=== PATIENT | female | born 1960 | race Caucasian/White ===

== ENCOUNTER → 2017-02-24 | Outpatient (CLI) | payer OTHER ==
[~2017-02-24] VITALS: Ht 160 cm; Wt 99.8 kg
[~2017-02-24] MED LIST: ACTONEL150 MG PO; AMOX TR-K CLV1 EAC4 PO; BENADRYL25 MG PO; COUMADIN1 MG PO; DOK PLUS TABLE1 EACH PO; DOXYCYCLINE HY100 MG PO; ENDOCET 5-3251 EACH PO; FLONASE16 G1 BOTH NARES; IRON325 M1 PO; METRONIDAZOLE500 MG PO; MICROZIDE12.5 M1 PO; MOBIC15 MG PO; NEURONTIN100 MG PO; PROTONIX20 MG PO; REQUIP0.25 MG PO; TUMS500 MG PO; TYLENOL WITH C1 EACH PO; ULTRAM50 MG PO; ZESTORETIC 20-1 EAC1 NG
== END | disposition home or self-care (01) ==
LOC: AMB 02-19 13:00
PROC: 0D758ZZ Dilation of Esophagus, Via Natural or Artificial Opening Endoscopic (ICD-10-PCS; principal; 2017-02-24)
PROC: 0DB98ZX Excision of Duodenum, Via Natural or Artificial Opening Endoscopic, Diagnostic (ICD-10-PCS; principal; 2017-02-24)
PROC: 0DB68ZX Excision of Stomach, Via Natural or Artificial Opening Endoscopic, Diagnostic (ICD-10-PCS; principal; 2017-02-24)
PROC: 0DB58ZX Excision of Esophagus, Via Natural or Artificial Opening Endoscopic, Diagnostic (ICD-10-PCS; principal; 2017-02-24)
DX: K31.7 Polyp of stomach and duodenum (principal); K21.9 Gastro-esophageal reflux disease without esophagitis; K29.70 Gastritis, unspecified, without bleeding; K44.9 Diaphragmatic hernia without obstruction or gangrene; I10 Essential (primary) hypertension; E66.9 Obesity, unspecified; Z68.38 Body mass index [BMI] 38.0-38.9, adult
CPT/HCPCS: 88305; 88342 TC; 93005; J2250; J3010

== ENCOUNTER 2017-06-17 10:02 | Day surgery (SDC) | payer OTHER ==
[~2017-06-17] VITALS: Ht 160 cm; Wt 99.8 kg
[~2017-06-17 10:02] MED LIST changes: +CHEWABLE-VITE1 EACH PO; +GABAPENTIN300 MG PO; +HYDROCHLOROTHIA25 MG PO; +PROTONIX40 MG PO; +VITAMIN B-125000 MC1 PO; +VITAMIN B-625 MG PO; +VITAMIN D32000 UNI1 PO
[2017-06-17 10:31] VITALS: BP 138/78
[2017-06-17 15:05] VITALS: BP 121/75
[2017-06-17 16:00] VITALS: BP 144/73
== END 2017-06-17 16:05 | disposition home or self-care (01) ==
LOC: SDC 10:02
DX: K21.9 Gastro-esophageal reflux disease without esophagitis (principal); K43.9 Ventral hernia without obstruction or gangrene; Z98.84 Bariatric surgery status; I10 Essential (primary) hypertension; E78.5 Hyperlipidemia, unspecified; G47.30 Sleep apnea, unspecified; E66.9 Obesity, unspecified; Z68.38 Body mass index [BMI] 38.0-38.9, adult
CPT/HCPCS: J0330; J1100; J1170; J1580; J1644; J2250; J2405; J2710; J7050; J7643; Q0175; S0020

== ENCOUNTER 2017-07-02 11:33 | Day surgery (SDC) | payer OTHER ==
[~2017-07-02] VITALS: Ht 160 cm; Wt 99.8 kg
[2017-07-02 11:59] VITALS: BP 141/83
[2017-07-02 14:45] VITALS: BP 134/91
[2017-07-02 15:40] VITALS: BP 135/74
== END 2017-07-02 15:35 | disposition home or self-care (01) ==
LOC: SDC 11:33
PROC: 01N50ZZ Release Median Nerve, Open Approach (ICD-10-PCS; principal; 2017-07-02)
DX: G56.02 Carpal tunnel syndrome, left upper limb (principal); I10 Essential (primary) hypertension; G47.30 Sleep apnea, unspecified; M19.90 Unspecified osteoarthritis, unspecified site; H57.052 Tonic pupil, left eye; E78.5 Hyperlipidemia, unspecified; G25.81 Restless legs syndrome; R60.0 Localized edema; E66.9 Obesity, unspecified; Z68.39 Body mass index [BMI] 39.0-39.9, adult; Z98.84 Bariatric surgery status; Z96.652 Presence of left artificial knee joint; Z83.3 Family history of diabetes mellitus; Z88.1 Allergy status to other antibiotic agents
CPT/HCPCS: J0690; J2250; J2405; S0020